=== PATIENT | female | born 1995 | race Caucasian/White ===

== ENCOUNTER 2018-07-18 07:19 | Emergency (ER) | payer OTHER ==
[2018-07-18 07:33] VITALS: BP 123/76
--- NOTE | 2018-07-18 07:46 | UC ---
Throat Pain/Nasal Grant HPI - HPI Summary HPI Summary: [address] AND PAIN WITH SWALLOWING. ALSO HAS HAD SEVERAL DAYS OF COUGH AND CONGESTION. NO FEVER, NAUSEA OR ABD PAIN. - History of Current Complaint Chief Complaint: UCGeneralIllness Stated Complaint: SORE THROAT Time Seen by Provider: 07/18/18 07:27 Hx Obtained From: Patient Hx Last Menstrual Period: 06/25/18 Onset/Duration: Gradual Onset, Lasting Days, Still Present Severity: Moderate Pain Intensity: 6 Pain Scale Used: 0-10 Numeric Cough: Nonproductive Associated Signs & Symptoms: Negative: Wheezing, Fever - Allergies/Home Medications Allergies/Adverse Reactions: Allergies Allergy/AdvReac Type Severity Reaction Status Date / Time No Known Allergies Allergy Verified 07/18/18 07:33 Home Medications: Home Medications NK [No Home Medications Reported] 07/18/18 [History Confirmed 07/18/18] PMH/Surg Hx/FS Hx/Imm Hx Previously Healthy: Yes - Surgical History Surgical History: None - Family History Known Family History: Positive: Non-Contributory - Social History Alcohol Use: Rare Substance Use Type: None Smoking Status (MU): Never Smoked Tobacco Review of Systems All Other Systems Reviewed And Are Negative: Yes Constitutional: Positive: Negative ENT: Positive: Ear Ache, Nasal Discharge Respiratory: Positive: Cough Cardiovascular: Positive: Negative Gastrointestinal: Positive: Negative Physical Exam Triage Information Reviewed: Yes Appearance: Well-Appearing, No Pain Distress, Well-Nourished Vital Signs: Initial Vital Signs Temp 98.4 F 07/18/18 07:28 Pulse 68 07/18/18 07:28 Resp 18 07/18/18 07:28 BP 123/76 07/18/18 07:28 Pulse Ox 100 07/18/18 07:28 Laboratory Tests 07/18/18 07:39 Group A Strep Rapid Negative Vital Signs Reviewed: Yes Eyes: Positive: Conjunctiva Clear ENT: Positive: Hearing grossly normal, Pharynx normal, TMs normal Neck: Positive: Supple, Nontender, No Lymphadenopathy Respiratory Exam: Normal Cardiovascular Exam: Normal Abdomen Description: Positive: Soft Musculoskeletal: Positive: No Edema Neurological: Positive: Alert Psychological: Positive: Age Appropriate Behavior Skin: Negative: Rashes Throat Pain/Nasal Course/Dx - Differential Dx/Diagnosis Provider Diagnosis: Acute pharyngitis Discharge - Sign-Out/Discharge Documenting (check all that apply): Patient Departure All imaging exams completed and their final reports reviewed: No Studies - Discharge Plan Condition: Stable Disposition: HOME Patient Education Materials: Pharyngitis (ED) Referrals: Magali Douglas MD [Primary Care Provider] - If Needed Additional Instructions: STREP NEGATIVE. YOUR SYMPTOMS ARE LIKELY VIRALLY MEDIATED AND SHOULD RESOLVE ON THEIR OWN WITH TIME. NO INDICATION FOR ANTIBIOTICS AT PRESENT. REST, HYDRATE, OTC MEDS NEEDED. SEEK FOLLOW-UP IF YOU ARE NOT IMPROVING OVER THE NEXT 1-2 WEEKS. - Billing Disposition and Condition Condition: STABLE Disposition: Home
== END 2018-07-18 08:04 | disposition home or self-care (01) ==
LOC: UCEAST 07:19
DX: J02.9 Acute pharyngitis, unspecified (principal)
CPT/HCPCS: 87651; 99202; G0463

== ENCOUNTER 2019-02-28 07:10 | Emergency (ER) | payer OTHER ==
[2019-02-28 07:26] VITALS: BP 115/57
--- NOTE | 2019-02-28 07:47 | UC ---
Throat Pain/Nasal Grant HPI - HPI Summary HPI Summary: The patient is a 23-year-old female with the onset yesterday of a sore throat. She has felt feverish but has not had a documented fever. She has some mild myalgias. She has some mild nasal congestion and states she feels a little phlegmy. She denies any nausea vomiting or diarrhea. She denies any abdominal pain. She has never had mono. - History of Current Complaint Chief Complaint: UCRespiratory Stated Complaint: SORE THROAT Time Seen by Provider: 02/28/19 07:24 Hx Obtained From: Patient Hx Last Menstrual Period: last month Onset/Duration: Gradual Onset, Lasting Hours Severity: Mild Pain Intensity: 4 Pain Scale Used: 0-10 Numeric Cough: None Associated Signs & Symptoms: Positive: Hoarseness, Nasal Discharge, Fever - иван - Epiglottits Risk Factors Epiglottis Risk Factors: Negative - Allergies/Home Medications Allergies/Adverse Reactions: Allergies Allergy/AdvReac Type Severity Reaction Status Date / Time No Known Allergies Allergy Verified 02/28/19 07:23 Home Medications: Home Medications Dextroamphetamine/Amphetamine [Dextroamp-Amphet ER 20 mg Cap] 1 tab PO DAILY [History Confirmed 02/28/19] Ibuprofen 400 mg PO ONCE PRN 02/28/19 [History Confirmed 02/28/19] Lisdexamfetamine (NF) [Vyvanse (NF)] 1 tab PO DAILY 02/28/19 [History Confirmed 02/28/19] PMH/Surg Hx/FS Hx/Imm Hx Previously Healthy: Yes - Surgical History Surgical History: None - Family History Known Family History: Positive: Non-Contributory Negative: Cardiac Disease, Hypertension, Diabetes, Respiratory Disease - Social History Alcohol Use: Occasionally Substance Use Type: None Smoking Status (MU): Never Smoked Tobacco Review of Systems All Other Systems Reviewed And Are Negative: Yes Constitutional: Positive: Fever - иван Eyes: Positive: Negative ENT: Positive: Sore Throat, Sinus Congestion Respiratory: Positive: Negative Cardiovascular: Positive: Negative Gastrointestinal: Positive: Negative Genitourinary: Positive: Negative Motor: Positive: Negative Neurovascular: Positive: Negative Musculoskeletal: Positive: Myalgia Neurological: Positive: Negative Psychological: Positive: Negative Physical Exam Triage Information Reviewed: Yes Appearance: Well-Appearing, No Pain Distress, Well-Nourished Vital Signs: Initial Vital Signs Temp 99.3 F 02/28/19 07:17 Pulse 72 02/28/19 07:17 Resp 18 02/28/19 07:17 BP 115/57 02/28/19 07:17 Pulse Ox 99 02/28/19 07:17 Vital Signs Reviewed: Yes Eyes: Positive: Conjunctiva Clear ENT: Positive: Hearing grossly normal, Pharyngeal erythema, Nasal congestion, TMs normal, Tonsillar swelling, Hoarse voice, Uvula midline. Negative: Nasal drainage, Tonsillar exudate, Trismus, Muffled voice, Dental tenderness, Sinus tenderness Dental Exam: Normal Neck: Positive: Nontender, Enlarged Nodes @ - min ant cerv adenopathy Respiratory: Positive: Lungs clear, Normal breath sounds, No respiratory distress, No accessory muscle use Cardiovascular: Positive: RRR, No Murmur Abdomen Description: Positive: Nontender, No Organomegaly, Soft. Negative: CVA Tenderness (R), CVA Tenderness (L) Bowel Sounds: Positive: Present Musculoskeletal: Positive: ROM Intact, No Edema Neurological: Positive: Alert Psychological Exam: Normal Skin Exam: Normal Diagnostics - Laboratory Lab Results: strep (-) Throat Pain/Nasal Course/Dx - Differential Dx/Diagnosis Provider Diagnosis: Pharyngitis Discharge ED - Sign-Out/Discharge Documenting (check all that apply): Patient Departure All imaging exams completed and their final reports reviewed: No Studies - Discharge Plan Condition: Stable Disposition: HOME Patient Education Materials: Pharyngitis (ED) Forms: *Gen. Provider Communication Referrals: Magali Douglas MD [Primary Care Provider] - If Needed Additional Instructions: rest fluids tylenol or advil recheck for new or worsening symptoms recheck in 4-5 days if not better - Billing Disposition and Condition Condition: STABLE Disposition: Home
== END 2019-02-28 08:01 | disposition home or self-care (01) ==
LOC: UCEAST 07:10
DX: J02.9 Acute pharyngitis, unspecified (principal); R09.89 Other specified symptoms and signs involving the circulatory and respiratory systems
CPT/HCPCS: 87651; 99211; G0463